=== PATIENT | female | born 1965 | race Asian ===

== ENCOUNTER → 2016-10-11 | Outpatient (CLI) | payer BC ==
--- NOTE | 2016-10-12 15:32 | MAMMOGRAPHY REPORT ---
BREAST MRI OF BOTH BREASTS : 10/11/2016 CLINICAL HISTORY: Silicone breast implants for 20 years. Rule out implant rupture. COMPARISON: No prior exams were available for comparison. Technique: The patient was placed prone in a dedicated breast imaging coil. Axial T2 weighted, axial T2 fat saturation axial and sagittal and axial and sagittal STIR sequences were obtained without con trast. Findings: Bilateral prepectoral silicone implants are noted. Radial folds are seen within both implants, witho ut evidence of intracapsular or extracapsular rupture. As no contrast was given, the exam is only ta ilored to evaluate for implant rupture and cannot evaluate the breast parenchyma for malignancy. There is no evidence of axillary adenopathy. The chest wall structures are negative. Visualized por tions of the extramammary soft tissues are unremarkable. A small circumscribed 8 mm T2 hyperintense mass is seen within the anterior aspect of the liver, which is not well evaluated on this exam but li [place] represents a cyst (series 3 image 36). IMPRESSION: ACR BI-RADS CATEGORY 2: BENIGN Bilateral implants appear intact, without evidence of intracapsular or extracapsular rupture. No elan or mammograms are available for comparison; if the patient has not had recent mammograms at another [facility], she should have routine bilateral screening mammograms at this time. Helena Bowman M.D. 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
== END | disposition home or self-care (01) ==
LOC: C.MRI 14:21
PROVIDERS: ATTEND Plastic Surgery
DX: Z98.82 Breast implant status (principal)

== ENCOUNTER → 2016-12-24 | Outpatient (CLI) | payer BC ==
--- NOTE | 2016-12-24 09:33 | DIAGNOSTIC IMAGING REPORT ---
ABDOMEN LIMITED (US) CLINICAL HISTORY: 51 years-old Female presenting with RT UPPER QUAD PAIN,HX OF GALLBLADDER POLYPS. TECHNIQUE: Real-time grayscale and limited color Doppler ultrasound imaging of the abdomen limited to the right upper quadrant was performed. COMPARISON: 12/16/2015. FINDINGS: Pancreas: Visualized portions of the pancreatic head and body normal. Liver: Normal echogenicity and echotexture. Multiple well-defined anechoic lesions consistent with hepatic cysts, the largest measuring 1.5 cm and the left hepatic lobe. Main portal vein patent with normal directional flow. Biliary: No intrahepatic biliary ductal dilatation. Common bile duct measures up to 4 mm in diameter. Gallbladder: No evidence of gallstones, gallbladder wall thickening, gallbladder distention, or pericholecystic fluid or inflammatory change. Right kidney: Normal in appearance. No hydronephrosis. Ascites: None. IMPRESSION: Benign hepatic cysts. Otherwise normal right upper quadrant ultrasound. Electronically signed by: Marlon Vargas M.D. 12/24/2016 9:32 AM Dictated Date/Time: 12/24/2016 9:30 AM
== END | disposition home or self-care (01) ==
LOC: C.ULTRBC 08:11
PROVIDERS: ATTEND Nurse Practitioner Family
DX: R10.11 Right upper quadrant pain (principal); K82.4 Cholesterolosis of gallbladder

== ENCOUNTER → 2017-05-21 | Outpatient (CLI) | payer OTHER ==
[2017-05-21 18:11] LABS: BASO % 0.4 %; BASO ABS # 0.02 K/uL (0-0.2); HEMATOCRIT 41.3 % (37-47); HEMOGLOBIN 14.2 g/dL (12.0-16.0); LYMPH ABS # 2.08 K/uL (1.2-3.4); MEAN CELL VOLUME 92.2 fL (80-100); MEAN CORPUSCULAR HEMOGLOBIN 31.7 pg (25-34); MEAN CORPUSCULAR HGB CONC 34.4 g/dl (32-36); MEAN PLATELET VOLUME 9.8 fL (7.4-10.4); MONO % 4.6 %; MONO ABS # 0.23 K/uL (0.11-0.59); NEUT ABS # 2.52 K/uL (1.4-6.5); PLATELET COUNT 248 K/uL (130-400); RED CELL DISTRIBUTION WIDTH CV 13.3 % (11.5-14.5); RED CELL DISTRIBUTION WIDTH SD 44.9 fL (36.4-46.3); WHITE BLOOD COUNT 4.95 K/uL (4.8-10.8)
[2017-05-21 18:18] LABS: PTT PATIENT 25.4 SECONDS (21.0-31.0)
== END | disposition home or self-care (01) ==
LOC: C.LAB 17:03
PROVIDERS: ATTEND Obstetrics & Gynecology
DX: N92.1 Excessive and frequent menstruation with irregular cycle (principal)

== ENCOUNTER 2017-09-29 21:34 | Emergency (ER) | payer OTHER ==
[~2017-09-29] VITALS: Ht 160 cm; Wt 49.9 kg
[2017-09-29 21:37] VITALS: TEMP 36.6; Ht 160 cm; Wt 49.9 kg
[2017-09-29] MEDS ORDERED: DOXYCYCLINE HYCLATE 100 MG CAP PO ONE (22:00)
[2017-09-29] MEDS ORDERED: DOXY100C2 PO (22:01)
[2017-09-29 22:14] VITALS: BP 114/72; PULSE 65; O2SAT 97
--- NOTE | 2017-09-29 22:33 | EMERGENCY ROOM VISIT NOTE ---
History First contact with patient: 21:46 Chief Complaint: BITE Stated Complaint: POSSIBLE TICK BITE History of Present Illness The patient is a 51 year old female who presents to the Emergency Room with complaints of right thigh by with erythema and central clearing then outer erythema that she noticed today. Patient has been outside. She is concerned she might of been bitten by tick. Patient denies flulike illness, chest pain, dyspnea, fever, chills, abdominal pain, cold symptoms. Immunizations are current. No recent travel. Review of Systems An 10 system review of systems was completed with positives and pertinent negatives listed in the HPI. Past Medical/Surgical History None Social History Smoking Status: Never Smoker Smokeless Tobacco Use: No Alcohol Use: none Drug Use: none Marital Status: Housing Status: lives with family Current/Historical Medications Scheduled Doxycycline Hyclate (Vibramycin), 100 MG PO BID Physical Exam Vital Signs Date Time Temp Pulse Resp B/P (MAP) Pulse Ox O2 Delivery O2 Flow Rate FiO2 09/29/17 22:14 65 18 114/72 97 09/29/17 21:37 36.6 65 18 114/37 100 Room Air Physical Exam VITALS: Vitals are noted on the nurse's note and reviewed by myself. Vital signs stable. GENERAL: Pleasant female, in no acute distress, nondiaphoretic, well-developed well-nourished. SKIN: Capillary reflex less than 2 seconds. Right inner thigh with bull's-eye rash concerning for Lyme's disease, without lymphangitis or enlarged lymph nodes to the groin HEENT: Normocephalic. PERRLA. EOMI. Nares patent. Mucous membranes moist. Neck is supple without nuchal rigidity. HEART: Regular rate and rhythm without murmurs gallops or rubs. LUNGS: Clear to auscultation bilaterally without wheezes, rales or rhonchi. No retractions or accessory muscle use. ABDOMEN: Positive bowel sounds x 4. Normal tympanic percussion. Soft, nontender, without masses or organomegaly. South sign negative. No guarding or rebound tenderness. MUSCULOSKELETAL: No gross musculoskeletal defects. No calf tenderness. NEURO: Patient was alert and oriented to person place and time. Normal sensation to light and sharp touch. No focal neurological deficits. Medical Decision & Procedures Medications Administered Medications (Trade) Dose Ordered Sig/Meliza Route Start Time Stop Time Status Last Admin Dose Admin Doxycycline Hyclate (Vibramycin Cap) 100 mg ONE ONCE PO 09/29/17 22:00 09/29/17 22:01 DC 09/29/17 22:11 100 MG ED Course Prior records/ancillary studies reviewed. Triage Nursing notes reviewed. The patient's history was concerning for a rash. Differential diagnosis: Etiologies such as contact dermatitis, viral exanthem, urticaria, allergic reaction, Light-Yo syndrome, toxic epidermal necrolysis, erythema multiforme, cellulitis, scabies, HSV, varicella, zoster, eczema, staph scalded skin syndrome, fungal infection, as well as others were entertained. Physical examination: As above ER treatment provided: Dr. Treviño On reassessment the patient felt better. Diagnostic interpretation by me: Deferred The etiology for the patient's rash appears to be consistent with possible Lyme' s disease. Patient's rash seems consistent with a bull's-eye appearing rash. She had no lymphangitis. She is afebrile nontoxic. No cold symptoms. She is advised to have a Lyme's test done in a week with the family care doctor if concerns about definitive diagnosis. She is advised to take medications as directed and avoid excessive sun exposure. She is advised to return to the ER immediately for high fevers, vomiting, pain, spreading infection, worsening signs or symptoms or as needed. She was informed that the rash might be present for a week or 2. By the evaluation outlined above emergent etiologies such as Light-Yo syndrome, toxic epidermal necrolysis, erythema multiforme, scabies, HSV, varicella, zoster, staph scalded skin syndrome, urticaria, allergic reaction, as well as others were deemed relatively unlikely. The pt informed about the findings as listed above. All questions were answered and pleased with the treatment. Return instructions were outlined and the patient was discharged in stable condition. Outpatient prescription management: Doxycycline Referral: The patient was referred back to their primary care physician for follow-up in 2 -3 days for a recheck of the current condition. The chart was completed utilizing [employer] voice recognition software. Grammatical errors, random word insertions, pronoun errors, and incomplete sentences are an occassional consequence of this system due to software limitations, ambient noise, and hardware issues. Any formal questions or concerns about the content, text, or information contained within the body of this dictation should be directly addressed to the physician digital marketing assistant for clarification. Medical Decision As above Medication Reconcilliation Current Medication List: was personally reviewed by me Blood Pressure Screening Patient's blood pressure: Normal blood pressure Impression Primary Impression: Erythema migrans (Lyme disease) Departure Information Dispostion Home / Self-Care Condition GOOD Prescriptions Doxycycline Hyclate (VIBRAMYCIN) 100 Mg Cap 100 MG PO BID for 14 Days, #28 CAP Prov: Charlotte Ram PA-C 09/29/17 Forms HOME CARE DOCUMENTATION FORM, IMPORTANT VISIT INFORMATION Patient Instructions My [facility], ED Facts Tick Additional Instructions Recommend getting a Lyme's test in 1 week with the family care doctor. Your rash can be present for up to a few weeks. It might get a little bit bigger before it starts getting smaller. Doxycycline 100mg: Take one pill twice daily for 14 days for your infection. Take with food, but avoid dairy. Avoid prolonged sun exposure since this medication makes you temporarily more susceptible to sunburns. All antibiotics can cause diarrhea. If this occurs and you feel worse or it does not resolve in 1-2 days follow up with your doctor or return to the Emergency Department as this could be signs of serious underlying problems. Any medication can cause an allergic reaction, stop the pills immediately and return to the ER for rash, hives, breathing difficulties, or swelling. Acetaminophen(Tylenol) may be used for fever or pain. Use 500mg every six hours as needed. Avoid using more than 2000mg in a 24 hour period. AND/OR Ibuprofen(Motrin, Advil) may be used for fever or pain. Use 400mg every six hours as needed. Take with food. Avoid using more than 1600mg in a 24 hour period. Do not use 1600mg per day for more than three consecutive days without physician direction. Prolonged inappropriate use can lead to stomach upset or ulcers. Rest and drink plenty of fluids. Avoid strenuous activity until your symptoms resolve and your breathing returns to normal. Continue current medications. Return to the ER for neck stiffness, confusion, chest pain, difficulty breathing , persistent fevers, vomiting, spreading of rash, worsening of your condition, or as needed. Follow-up with family care in 1 week for lab testing for Lyme's.
== END 2017-09-29 22:17 | disposition home or self-care (01) ==
LOC: C.EDB 21:35 → C.EDD 22:17
DX: A26.0 Cutaneous erysipeloid (principal)